=== PATIENT | male | born 1965 | race Caucasian/White ===

== ENCOUNTER 2016-10-10 07:54 | Emergency (ER) | payer MEDICAID ==
[~2016-10-10] VITALS: Ht 177.8 cm; Wt 137.0 kg
[~2016-10-10 07:54] MED LIST: ADVAI250I PO; COMBAER INH; HYDR-3533 PO; IBUP800 PO; SERO400T PO; VENTAER INH
[2016-10-10 07:58] VITALS: BP 131/101; PULSE 101; RESP 30; TEMP 98.5; O2SAT 97
[2016-10-10] MEDS ORDERED: SODIUM CHLORIDE 0.9% FLUSH 5 ML FLUSH IVF PRN (08:00)
[2016-10-10] MEDS ORDERED: methylPREDNISolone SOD SUCC 125 MG/2 ML VIAL IVP ONE (08:00)
[2016-10-10 08:04] VITALS: O2SAT 99
[2016-10-10] MEDS: RESP: ALBUTEROL 2.5 MG/IPRATROPIUM 0.5 MG NEB (SCH) INH (08:07)
[2016-10-10 08:10] VITALS: O2SAT 6
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
[2016-10-10 08:37] LABS: AUTOMATED NEUTROPHIL # 6.8 TH/MM3 (1.8-7.7); BASOPHIL # 0.1 TH/MM3 (0-0.2); BASOPHIL % 0.6 % (0.0-2.0); EOSINOPHIL % 0.3 % (0.0-4.0); HEMATOCRIT 46.8 % (39.0-51.0); HEMO FLAGS DIFF FINAL; LYMPH % 14.2 % (9.0-44.0); LYMPHOCYTE # 1.3 TH/MM3 (1.0-4.8); MEAN CELL VOLUME 100.3 FL (80.0-100.0); MEAN CORPUSCULAR HEMOGLOBIN 33.8 PG (27.0-34.0); MEAN CORPUSCULAR HGB CONC 33.7 % (32.0-36.0); MONO % 9.3 % (0.0-8.0); NEUT % 75.6 % (16.0-70.0); PLATELET COUNT 249 TH/MM3 (150-450); RED BLOOD COUNT 4.66 MIL/MM3 (4.50-5.90); RED CELL DISTRIBUTION WIDTH 11.4 % (11.6-17.2)
[2016-10-10 08:43] VITALS: BP 163/95; PULSE 99; RESP 26; O2SAT 95
[2016-10-10 08:45] LABS: CHLORIDE 104 MEQ/L (98-107); SODIUM (NA) 141 MEQ/L (136-145)
[2016-10-10 08:49] LABS: ANION GAP 7 MEQ/L (5-15); BICARBONATE 30.5 MEQ/L (21.0-32.0); BLOOD UREA NITROGEN 17 MG/DL (7-18)
[2016-10-10 08:52] LABS: ALT (GPT) 54 U/L (12-78); AST (GOT) 23 U/L (15-37)
[2016-10-10 08:53] LABS: GLOMERULAR FILTRATION RATE 78 ML/MIN (>89)
[2016-10-10 08:54] LABS: TOTAL BILIRUBIN ADULT 0.3 MG/DL (0.2-1.0)
[2016-10-10 08:55] LABS: ALKALINE PHOSPHATASE 101 U/L (45-117)
[2016-10-10] MEDS ORDERED: LORazepam 0.5 MG TAB PO ONE (09:00)
--- NOTE | 2016-10-10 09:08 | RADHPO ---
EXAM DATE/TIME: 10/10/2016 08:25 [facility] COMPARISON: CHEST SINGLE AP, May 18, 2015, 3:16. INDICATIONS : Short of breath, cough, chest pain. MEDICAL HISTORY : Chronic obstructive pulmonary disease. SURGICAL HISTORY : None. ENCOUNTER: Initial ACUITY: 1 week PAIN SCORE: 5/10 LOCATION: Bilateral chest FINDINGS: A single view of the chest demonstrates the lungs to be symmetrically aerated without evidence of mas s, infiltrate or effusion. Subsegmental atelectasis at the bases. The cardiomediastinal contours are unremarkable. Osseous structures are intact. CONCLUSION: 1. Subsegmental atelectasis at the bases. No acute findings. Felix Vaz MD on October 10, 2016 at 9:02 Board Certified Radiologist. This report was verified electronically.
[2016-10-10] MEDS ORDERED: PRED20 PO (09:21)
--- NOTE | 2016-10-10 16:56 | EKG ---
Date Performed: 10/10/2016 Time Performed: 08:45:26 PTAGE: 50 years EKG: Sinus rhythm Normal ECG PREVIOUS TRACING : 05/18/2015 02.59 Compared to previous tracing, the patient is no longer tach ycardic. DOCTOR: Kala Wong Interpretating Date/Time 10/10/2016 16:55:35
== END 2016-10-10 09:26 | disposition home or self-care (01) ==
LOC: PHED 07:54
DX: J44.1 Chronic obstructive pulmonary disease with (acute) exacerbation (principal); J45.909 Unspecified asthma, uncomplicated; B19.20 Unspecified viral hepatitis C without hepatic coma; I10 Essential (primary) hypertension; F17.210 Nicotine dependence, cigarettes, uncomplicated; R00.0 Tachycardia, unspecified; B95.7 Other staphylococcus as the cause of diseases classified elsewhere
CPT/HCPCS: 71010; 80053; 83605; 83880; 84484; 85025; 87040; 87077; 87186; 87205; 87804; 93005; 94640; 94664; 96374; 99285; J2930

== ENCOUNTER 2016-12-31 07:17 | Emergency (ER) | payer MEDICAID ==
[~2016-12-31] VITALS: Ht 177.8 cm; Wt 133.0 kg
[~2016-12-31 07:17] MED LIST changes: +PRED20 PO
[2016-12-31 07:20] VITALS: BP 189/94; PULSE 83; RESP 16; TEMP 98.7; O2SAT 98
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
[2016-12-31] MEDS ORDERED: PROPARACAINE HCL 0.5% OPHT SOLN 15 ML BTL EACH EYE ONE (07:45)
[2016-12-31] MEDS ORDERED: TOBR.3%O LEFT EYE (07:49)
== END 2016-12-31 07:55 | disposition home or self-care (01) ==
LOC: PHED 07:17
DX: S05.02XA Injury of conjunctiva and corneal abrasion without foreign body, left eye, initial encounter (principal); J44.9 Chronic obstructive pulmonary disease, unspecified; J45.909 Unspecified asthma, uncomplicated; F41.9 Anxiety disorder, unspecified; B19.20 Unspecified viral hepatitis C without hepatic coma; I10 Essential (primary) hypertension; F17.200 Nicotine dependence, unspecified, uncomplicated; W22.8XXA Striking against or struck by other objects, initial encounter; Z79.899 Other long term (current) drug therapy
CPT/HCPCS: 99283

== ENCOUNTER 2017-02-07 05:41 | Emergency (ER) | payer MEDICAID, OTHER ==
[~2017-02-07] VITALS: Ht 177.8 cm; Wt 113.0 kg
[~2017-02-07 05:41] MED LIST changes: +TOBR.3%O LEFT EYE
[2017-02-07] MEDS ORDERED: HYDROmorphone HCL PF 1 MG/ML VIAL IV PUSH ONE ×2 (05:45→06:45)
[2017-02-07 05:48] VITALS: BP 136/99; PULSE 108; RESP 24; TEMP 98.7; O2SAT 96
[2017-02-07] MEDS ORDERED: SERO400T PO (05:55)
[2017-02-07] MEDS ORDERED: VENTAER INH (05:55)
[2017-02-07] MEDS ORDERED: ADVA500A INH (05:55)
[2017-02-07] MEDS ORDERED: IPRA17I INH (05:55)
[2017-02-07] MEDS ORDERED: IBUP800T23 PO (05:55)
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
[2017-02-07] MEDS ORDERED: IOHEXOL 350 MG/ML 10 ML VIAL (for RAD DIAG) IV ONE (06:06)
[2017-02-07 06:26] LABS: ALKALINE PHOSPHATASE 61 U/L (45-117); TOTAL BILIRUBIN ADULT 0.7 MG/DL (0.2-1.0)
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
[2017-02-07] MEDS ORDERED: RESP: ALBUTEROL 2.5 MG/IPRATROPIUM 0.5 MG NEB (SCH) NEB ONE (06:45)
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
[2017-02-07 07:07] LABS: ALT (GPT) 44 U/L (12-78); ANION GAP 9 MEQ/L (5-15); AST (GOT) 35 U/L (15-37); BICARBONATE 21.6 MEQ/L (21.0-32.0); BLOOD UREA NITROGEN 20 MG/DL (7-18); CHLORIDE 104 MEQ/L (98-107); GLOMERULAR FILTRATION RATE 69 ML/MIN (>89); POTASSIUM 4.1 MEQ/L (3.5-5.1); SODIUM (NA) 135 MEQ/L (136-145)
[2017-02-07 07:11] LABS: AUTOMATED NEUTROPHIL # 9.6 TH/MM3 (1.8-7.7); BASOPHIL % 0.3 % (0.0-2.0); EOSINOPHIL % 0.1 % (0.0-4.0); HEMATOCRIT 41.7 % (39.0-51.0); HEMO FLAGS DIFF FINAL; LYMPH % 13.5 % (9.0-44.0); LYMPHOCYTE # 1.7 TH/MM3 (1.0-4.8); MEAN CELL VOLUME 97.1 FL (80.0-100.0); MEAN CORPUSCULAR HEMOGLOBIN 33.7 PG (27.0-34.0); MEAN CORPUSCULAR HGB CONC 34.7 % (32.0-36.0); MONO % 7.7 % (0.0-8.0); NEUT % 78.4 % (16.0-70.0); PLATELET COUNT 165 TH/MM3 (150-450); RED BLOOD COUNT 4.29 MIL/MM3 (4.50-5.90); RED CELL DISTRIBUTION WIDTH 11.9 % (11.6-17.2); WHITE BLOOD COUNT 12.3 TH/MM3 (4.0-11.0)
[2017-02-07 07:12] LABS: APTT (PATIENT) 23.8 SEC (24.3-30.1); PROTHROMBIN TIME - PATIENT 10.7 SEC (9.8-11.6)
[2017-02-07 07:15] VITALS: BP 139/91; PULSE 102; RESP 18; TEMP 97.8; O2SAT 96
[2017-02-07] MEDS ORDERED: LIDOCAINE 1%/EPINEPHrine 1:100,000 SOLN 50 ML VIAL INFIL ONE (08:30)
--- NOTE | 2017-02-07 09:01 | PD ---
Physical Exam Time Seen by Provider: 08:58 Narrative I repaired the lacerations to the left posterior scalp. Data Data Last Documented VS Vital Signs Date Time Temp Pulse Resp B/P Pulse Ox O2 Delivery O2 Flow Rate FiO2 02/07/17 07:15 97.8 102 18 139/91 96 Room Air 02/07/17 07:15 2 Orders Complete Blood Count With Diff (02/07/17 05:45) Comprehensive Metabolic Panel (02/07/17 05:45) Prothrombin Time / Inr (Pt) (02/07/17 05:45) Act Partial Throm Time (Ptt) (02/07/17 05:45) Ct Brain W/O Iv Contrast(Rout) (02/07/17 ) Ct Cerv Spine W/O Contrast (02/07/17 ) Ct Thorax/ Chest W Iv Contrast (02/07/17 ) Ct Abd/Pel W Iv Contrast(Rout) (02/07/17 ) ^ Insert Iv (02/07/17 05:45) Hydromorphone Pf Inj (Dilaudid Pf Inj) (02/07/17 05:45) Iohexol 350 Inj (Omnipaque 350 Inj) (02/07/17 06:06) Albuterol-Ipratropium Neb (Duoneb Neb) (02/07/17 06:45) Hydromorphone Pf Inj (Dilaudid Pf Inj) (02/07/17 06:45) Lidocai-Epi 1%-1:100,000 Inj (Xylocaine- (02/07/17 08:30) Electrocardiogram (02/07/17 05:49) Labs Laboratory Tests Test 02/07/17 02/07/17 02/07/17 05:58 06:47 07:00 Sodium Level 135 MEQ/L Potassium Level 4.1 MEQ/L Chloride Level 104 MEQ/L Carbon Dioxide Level 21.6 MEQ/L Anion Gap 9 MEQ/L Blood Urea Nitrogen 20 MG/DL Creatinine 1.12 MG/DL Estimat Glomerular Filtration 69 ML/MIN Rate Random Glucose 179 MG/DL Calcium Level 8.8 MG/DL Total Bilirubin 0.7 MG/DL Aspartate Amino Transf 35 U/L (AST/SGOT) Alanine Aminotransferase 44 U/L (ALT/SGPT) Alkaline Phosphatase 61 U/L Total Protein 6.7 GM/DL Albumin 3.2 GM/DL Prothrombin Time 10.7 SEC Prothromb Time International 1.0 RATIO Ratio Activated Partial 23.8 SEC Thromboplast Time White Blood Count 12.3 TH/MM3 Red Blood Count 4.29 MIL/MM3 Hemoglobin 14.5 GM/DL Hematocrit 41.7 % Mean Corpuscular Volume 97.1 FL Mean Corpuscular Hemoglobin 33.7 PG Mean Corpuscular Hemoglobin 34.7 % Concent Red Cell Distribution Width 11.9 % Platelet Count 165 TH/MM3 Mean Platelet Volume 8.5 FL Neutrophils (%) (Auto) 78.4 % Lymphocytes (%) (Auto) 13.5 % Monocytes (%) (Auto) 7.7 % Eosinophils (%) (Auto) 0.1 % Basophils (%) (Auto) 0.3 % Neutrophils # (Auto) 9.6 TH/MM3 Lymphocytes # (Auto) 1.7 TH/MM3 Monocytes # (Auto) 0.9 TH/MM3 Eosinophils # (Auto) 0.0 TH/MM3 Basophils # (Auto) 0.0 TH/MM3 CBC Comment DIFF FINAL Differential Comment MDM Medical Record Reviewed: Yes Supervised Visit with GLADYS: No Narrative Course I repaired the lacerations to the left posterior scalp. See my procedure note for laceration repair. Procedures Procedure Narrative LACERATION LOCATION: Left posterior scalp (right) LENGTH: 2.5 cm NUMBER OF STITCHES/RONNI: 4 ronni REPAIR: The area of the laceration was prepped with Betadine and sterilely draped. The laceration was infiltrated with 1% lidocaine with epinephrine. The wound was copiously irrigated and explored without evidence of foreign body, tendon injury or neurovascular injury. The wound was closed using ronni. This was a single layer repair. A sterile dressing was applied. The patient was advised to keep the dressing clean and dry. Patient tolerated the procedure well. LACERATION LOCATION: Left posterior scalp (middle) LENGTH: 1 cm NUMBER OF STITCHES/RONNI: 2 ronni REPAIR: The area of the laceration was prepped with Betadine and sterilely draped. The laceration was infiltrated with 1% lidocaine with epinephrine. The wound was copiously irrigated and explored without evidence of foreign body, tendon injury or neurovascular injury. The wound was closed using ronni. This was a single layer repair. A sterile dressing was applied. The patient was advised to keep the dressing clean and dry. Patient tolerated the procedure well. LACERATION LOCATION: Left posterior scalp (left) LENGTH: 3 cm NUMBER OF STITCHES/RONNI: 5 ronni REPAIR: The area of the laceration was prepped with Betadine and sterilely draped. The laceration was infiltrated with 1% lidocaine with epinephrine. The wound was copiously irrigated and explored without evidence of foreign body, tendon injury or neurovascular injury. The wound was closed using ronni. This was a single layer repair. A sterile dressing was applied. The patient was advised to keep the dressing clean and dry. Patient tolerated the procedure well. Aaliyah Pena February 07, 2017 09:01
--- NOTE | 2017-02-07 09:47 | EKG ---
Date Performed: 02/07/2017 Time Performed: 05:49:51 PTAGE: 51 years EKG: SINUS TACHYCARDIA ABNORMAL RHYTHM ECG PREVIOUS TRACING : 10/10/2016 08.45 DOCTOR: Jayson Allen Interpretating Date/Time 02/09/2017 09:08:35
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
[2017-02-07] MEDS ORDERED: PERC10TA27 PO (09:55)
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
[2017-02-07 11:00] VITALS: BP 126/81; TEMP 98
[2017-02-08] MEDS ORDERED: SENN1TAB PO (14:42)
--- NOTE | 2017-02-11 13:08 | EKG ---
Date Performed: 02/07/2017 Time Performed: 08:50:29 PTAGE: 51 years EKG: Sinus rhythm NORMAL ECG PREVIOUS TRACING : 02/07/2017 05.49 DOCTOR: Jayson Allen Interpretating Date/Time 02/11/2017 13:07:44
== END 2017-02-07 11:00 | disposition home or self-care (01) ==
LOC: NEPE 05:41
DX: S01.01XA Laceration without foreign body of scalp, initial encounter (principal); S20.219A Contusion of unspecified front wall of thorax, initial encounter; S00.93XA Contusion of unspecified part of head, initial encounter; S30.0XXA Contusion of lower back and pelvis, initial encounter; S70.02XA Contusion of left hip, initial encounter; R00.0 Tachycardia, unspecified; J45.909 Unspecified asthma, uncomplicated; J44.9 Chronic obstructive pulmonary disease, unspecified; I10 Essential (primary) hypertension; B19.20 Unspecified viral hepatitis C without hepatic coma; F17.210 Nicotine dependence, cigarettes, uncomplicated; V29.88XA Motorcycle rider (driver) (passenger) injured in other specified transport accidents, initial encounter; Y93.E6 Activity, residential relocation; Y92.410 Unspecified street and highway as the place of occurrence of the external cause; Y99.8 Other external cause status
CPT/HCPCS: 12002; 70450; 71260; 72125; 74177; 80053; 85025; 85610; 85730; 93005; 94664; 96374; 96376; 99285; J1170; Q9967

== ENCOUNTER 2017-02-08 12:04 | Observation (INO) | payer MEDICAID, OTHER ==
[~2017-02-08] VITALS: Ht 177.8 cm; Wt 126.8 kg
[~2017-02-08 12:04] MED LIST changes: +ADVA500A INH; -ADVAI250I PO; -COMBAER INH; -HYDR-3533 PO; -IBUP800 PO; +IBUP800T23 PO; +IPRA17I INH; +PERC10TA27 PO; -PRED20 PO; -TOBR.3%O LEFT EYE
[2017-02-08 12:07] VITALS: BP 111/76; PULSE 113; RESP 22; TEMP 98.3; O2SAT 96
[2017-02-08 12:22] VITALS: BP 115/68; PULSE 99; RESP 22; TEMP 98.3; O2SAT 97
[2017-02-08] MEDS ORDERED: HYDROmorphone HCL PF 1 MG/ML VIAL IV PUSH ONE (12:45)
[2017-02-08] MEDS ORDERED: ONDANSETRON HCL 4 MG/2 ML VIAL IV PUSH ONE (12:45)
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
[2017-02-08 13:13] LABS: AUTOMATED NEUTROPHIL # 5.4 TH/MM3 (1.8-7.7); BASOPHIL # 0.3 TH/MM3 (0-0.2); EOSINOPHIL # 0.2 TH/MM3 (0-0.4); EOSINOPHIL % 2.2 % (0.0-4.0); HEMATOCRIT 36.2 % (39.0-51.0); HEMO FLAGS DIFF FINAL; LYMPHOCYTE # 2.2 TH/MM3 (1.0-4.8); MEAN CELL VOLUME 98.4 FL (80.0-100.0); MEAN CORPUSCULAR HGB CONC 33.5 % (32.0-36.0); MONO % 8.4 % (0.0-8.0); NEUT % 61.4 % (16.0-70.0); PLATELET COUNT 146 TH/MM3 (150-450); RED BLOOD COUNT 3.68 MIL/MM3 (4.50-5.90); RED CELL DISTRIBUTION WIDTH 11.3 % (11.6-17.2); WHITE BLOOD COUNT 8.9 TH/MM3 (4.0-11.0)
[2017-02-08 13:27] LABS: POTASSIUM 3.5 MEQ/L (3.5-5.1)
[2017-02-08 13:30] LABS: BICARBONATE 30.2 MEQ/L (21.0-32.0)
--- NOTE | 2017-02-08 13:40 | RADHPO ---
EXAM DATE/TIME: 02/08/2017 12:58 [facility] COMPARISON: CHEST SINGLE AP, October 10, 2016, 8:25. INDICATIONS : Short of breath, chest pains MEDICAL HISTORY : Chronic obstructive pulmonary disease. Emphysema. SURGICAL HISTORY : None. ENCOUNTER: Initial ACUITY: 2 days PAIN SCORE: 10/10 LOCATION: Bilateral chest FINDINGS: A single view of the chest demonstrates the lungs to be symmetrically aerated without evidence of mas s, infiltrate or effusion. The cardiomediastinal contours are unremarkable. Osseous structures are intact. CONCLUSION: No acute disease. Pepe Burr MD on February 08, 2017 at 13:38 Board Certified Radiologist. This report was verified electronically.
[2017-02-08 14:05] VITALS: BP 138/63; PULSE 98; RESP 18; O2SAT 96
[2017-02-08 14:30] LABS: APTT (PATIENT) 24.3 SEC (24.3-30.1); PROTHROMBIN TIME - PATIENT 10.5 SEC (9.8-11.6)
[2017-02-08] MEDS ORDERED: BISACODYL 10 MG SUPP RECTAL PRN (14:30)
[2017-02-08] MEDS ORDERED: oxyCODONE/ACETAMINOPHEN 10 MG/325 MG TAB PO PRN (14:30)
[2017-02-08] MEDS ORDERED: HYDROmorphone HCL PF 1 MG/ML VIAL IV PRN (14:30)
[2017-02-08] MEDS ORDERED: ACETAMINOPHEN 325 MG TAB PO PRN (14:30)
[2017-02-08] MEDS ORDERED: ALBUTEROL SULFATE 90 MCG/ACT HFA 8 GM INHALER INH PRN (14:30)
[2017-02-08] MEDS ORDERED: SODIUM CHLORIDE 0.9% FLUSH 10 ML FLUSH IV FLUSH PRN (14:30)
[2017-02-08] MEDS ORDERED: oxyCODONE/ACETAMINOPHEN 5 MG/325 MG TAB PO PRN (14:30)
[2017-02-08] MEDS ORDERED: ONDANSETRON HCL 4 MG/2 ML VIAL IVP PRN (14:30)
[2017-02-08] MEDS ORDERED: IPRATROPIUM BROMIDE 17 MCG/ACT 12.9 GM INHALER INH PRN (14:30)
[2017-02-08] MEDS ORDERED: NALOXONE HCL 0.4 MG/ML AMP IV PRN (14:30)
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
[2017-02-08] MEDS ORDERED: SENN1TAB PO (14:42)
--- NOTE | 2017-02-08 14:43 | HHI.DCPOC ---
Discharge Care Plan Diagnosis: (1) Contusion of buttock (2) Chest wall contusion Your Health Problems Are: Difficulty with ADL Exercise Tolerance Chronic Pain Goals to Promote Your Health * To prevent worsening of your condition and complications * To maintain your health at the optimal level Directions to Meet Your Goals Take your medications as prescribed Follow your dietary instruction Follow activity as directed Keep your appointments as scheduled Take your immunizations and boosters as scheduled If your symptoms worsen call your PCP, if no PCP go to Urgent Care Center or Emergency Room Smoking is Dangerous to Your Health. Avoid second hand smoke Call the 24-hour hour crisis hotline for domestic abuse at Chon Orellana MD February 08, 2017 14:43
--- NOTE | 2017-02-08 14:44 | HHI.FF ---
Face to Face Verification Diagnosis: (1) Contusion of buttock Physical Therapy Order: Evaluate and Treat, Improve ambulation, Strength and gait training I have seen patient Sergey Ch on 02/08/17. My clinical findings support the need for the requested home health care services because: Patient has SOB Deconditioned w/ increased weakness I certify that my clinical findings support that this patient is homebound because: Unsteady gait/balance Unsafe to leave home unassisted Chon Orellana MD February 08, 2017 14:43
[2017-02-08] MEDS ORDERED: NEOMYCIN/POLYMYXIN/BACITRACIN OINT 15 GM TUBE TOPICAL SCH (15:00)
[2017-02-08] MEDS ORDERED: DOCUSATE SODIUM 50 MG/SENNA 8.6 MG TAB PO SCH (15:00)
[2017-02-08 15:30] VITALS: BP 111/82; PULSE 106; RESP 20; TEMP 97.2; O2SAT 90
[2017-02-08] MEDS ORDERED: RESP: IPRATROPIUM 0.5 MG/2.5 ML NEB NEB PRN (15:30)
[2017-02-08 15:41] VITALS: O2SAT 93
[2017-02-08] MEDS ORDERED: BUDESONIDE-FORMOTEROL 160/4.5 MCG INHALER INH SCH (21:00)
[2017-02-08] MEDS ORDERED: SODIUM CHLORIDE 0.9% FLUSH 10 ML FLUSH IV FLUSH SCH (21:00)
[2017-02-08] MEDS ORDERED: QUEtiapine FUMARATE 200 MG TAB PO SCH (21:00)
== END 2017-02-08 18:52 | disposition home or self-care (01) ==
LOC: PHED 12:04 → PHEDA 14:16 → PH3A 15:03
PROVIDERS: ADMIT Internal Medicine; ATTEND Internal Medicine
DX: S20.212D Contusion of left front wall of thorax, subsequent encounter (principal); S30.0XXD Contusion of lower back and pelvis, subsequent encounter; S01.01XA Laceration without foreign body of scalp, initial encounter; J44.9 Chronic obstructive pulmonary disease, unspecified; I10 Essential (primary) hypertension; D64.9 Anemia, unspecified; R73.9 Hyperglycemia, unspecified; V00.148D Other scooter (nonmotorized) accident, subsequent encounter; M54.9 Dorsalgia, unspecified; G89.29 Other chronic pain; B19.20 Unspecified viral hepatitis C without hepatic coma; F17.200 Nicotine dependence, unspecified, uncomplicated; F41.9 Anxiety disorder, unspecified; E66.9 Obesity, unspecified; Z68.41 Body mass index [BMI] 40.0-44.9, adult
CPT/HCPCS: 71010; 80048; 85025; 85610; 85730; 94150; 96374; 96375; 99285; G0378; J1170; J2405

== ENCOUNTER 2017-02-11 12:13 | Emergency (ER) | payer MEDICAID, OTHER ==
[~2017-02-11] VITALS: Ht 177.8 cm; Wt 128.0 kg
[~2017-02-11 12:13] MED LIST changes: +SENN1TAB PO
[2017-02-11 12:16] VITALS: BP 177/98; PULSE 95; RESP 24; TEMP 98.6; O2SAT 95
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
[2017-02-11] MEDS ORDERED: oxyCODONE/ACETAMINOPHEN 10 MG/325 MG TAB PO ONE (14:00)
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
[2017-02-11] MEDS ORDERED: PERC5TAB12 PO (15:13)
[2017-02-11 15:20] VITALS: BP 131/72
== END 2017-02-11 15:25 | disposition home or self-care (01) ==
LOC: NEPE 12:13
DX: S30.0XXA Contusion of lower back and pelvis, initial encounter (principal); X58.XXXA Exposure to other specified factors, initial encounter
CPT/HCPCS: 99283

== ENCOUNTER 2017-02-16 11:02 | Emergency (ER) | payer MEDICAID ==
[~2017-02-16] VITALS: Ht 177.8 cm; Wt 130.0 kg
[~2017-02-16 11:02] MED LIST changes: -PERC10TA27 PO; +PERC5TAB12 PO
[2017-02-16 11:05] VITALS: BP 144/96; PULSE 87; RESP 20; TEMP 97.3; O2SAT 97
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
== END 2017-02-16 11:44 | disposition home or self-care (01) ==
LOC: PHEFT 11:02
DX: Z48.02 Encounter for removal of sutures (principal); J45.909 Unspecified asthma, uncomplicated; F41.9 Anxiety disorder, unspecified; J44.9 Chronic obstructive pulmonary disease, unspecified; I10 Essential (primary) hypertension; B19.20 Unspecified viral hepatitis C without hepatic coma; F17.200 Nicotine dependence, unspecified, uncomplicated; Z79.899 Other long term (current) drug therapy; Z79.51 Long term (current) use of inhaled steroids
CPT/HCPCS: 99281

== ENCOUNTER 2017-06-23 19:32 | Emergency (ER) | payer MEDICAID ==
[~2017-06-23] VITALS: Ht 177.8 cm; Wt 117.0 kg
--- NOTE | 2017-06-23 19:43 | PD ---
HPI Chief Complaint: Respiratory Distress Time Seen by Provider: 19:35 Travel History International Travel<30 days: No Contact w/Intl Traveler<30days: No Traveled to known affect area: No History of Present Illness HPI 51-year-old male presents to the emergency department with marked shortness of breath and respiratory distress with history of COPD exacerbation times one day. Patient states he has his rescue inhaler and nebulizer at home but there are not providing any symptomatic relief. Patient denies any recent antibiotic use. Patient denies any recent fever. Patient denies chest pain. Ongoing tobacco use. PFSH Past Medical History Narrative Medical COPD anxiety hepatitis C tobacco use remote cocaine use nursing notes reviewed Asthma: Yes Anxiety: Yes Cardiovascular Problems: Yes COPD: Yes Diabetes: No Diminished Hearing: No Gastrointestinal Disorders: No Hepatitis: Yes (HEP C) Hypertension: Yes Musculoskeletal: Yes (CHRONIC BACK PAIN SINCE 1994 R/T FALL) Neurologic: No Respiratory: Yes (copd) Immunizations Current: Yes (hep a vacc 2010 &b vacc.2010) Sleep Apnea: No Past Surgical History Abdominal Surgery: Yes (HERNIA REPAIR x4) Body Medical Devices: COCAINE USE LAST 20 YRS AGO Cholecystectomy: Yes Neurologic Surgery: No Other Surgery: Yes (LIVER BIOPSY X2) Social History Alcohol Use: No Tobacco Use: Yes (1/2PPD) Substance Use: No (denies-IV drug use in the 80s) Allergies-Medications (Allergen,Severity, Reaction): Coded Allergies: No Known Allergies (Verified , 02/16/17) Reported Meds & Prescriptions Reported Meds & Active Scripts Active Medrol Dosepak (Methylprednisolone) 4 Mg Dspk 4 Mg PO DIRECTED Per Pharmacist direction Atrovent HFA 12.9 GM Inh (Ipratropium [place]) 17 Mcg/Actuation Aer 2 Puff INH Q6HR PRN Reported Seroquel (Quetiapine Fumarate) 400 Mg Tab 400 Mg PO HS Ibuprofen 800 Mg Tab 800 Mg PO BID PRN Atrovent HFA 12.9 GM Inh (Ipratropium [place]) 17 Mcg/Act Aer 2 Puff INH Q6HR PRN Ventolin Hfa 18 GM Inh (Albuterol Sulfate) 90 Mcg/Act Aer 2 Puff INH Q4H PRN Advair Diskus Inh (Fluticasone-Salmeterol Inh) 500-50 Mcg/Blist Aer 1 Puff INH BID Rinse mouth after use. Review of Systems Except as stated in HPI: all other systems reviewed are Neg General / Constitutional: No: Fever HENT: No: Congestion Cardiovascular: No: Chest Pain or Discomfort Respiratory: Positive: Cough, Shortness of Breath, Wheezing Gastrointestinal: No: Abdominal Pain Musculoskeletal: No: Pain Skin: No Rash Neurologic: No: Weakness Psychiatric: Positive: Anxiety Hematologic/Lymphatic: No: Lymph Node Enlargement Physical Exam Narrative GENERAL: Well-developed well-nourished male in no respiratory distress no stridor or hoarseness SKIN: Warm and diaphoretic. HEAD: Normocephalic. EYES: No scleral icterus. No injection or drainage. NECK: Supple, trachea midline. No JVD or lymphadenopathy. CARDIOVASCULAR: Increase Regular rate and rhythm without murmurs, gallops, or rubs. RESPIRATORY: Breath sounds equal bilaterally diminished with diffuse wheezing. No accessory muscle use. GASTROINTESTINAL: Abdomen soft, non-tender, nondistended. MUSCULOSKELETAL: No cyanosis, or edema. BACK: Nontender without obvious deformity. No CVA tenderness. Data Data Last Documented VS Vital Signs Date Time Temp Pulse Resp B/P (MAP) Pulse Ox O2 Delivery O2 Flow Rate FiO2 06/23/17 21:00 06/23/17 20:48 18 97 Room Air 06/23/17 20:36 87 2.00 Orders Orders Complete Blood Count With Diff (06/23/17 19:35) Basic Metabolic Panel (Bmp) (06/23/17 19:35) B-Type Natriuretic Peptide (06/23/17 19:35) Magnesium (Mg) (06/23/17 19:35) Ckmb (Isoenzyme) Profile (06/23/17 19:35) Troponin I (06/23/17 19:35) Iv Access Insert/Monitor (06/23/17 19:35) Electrocardiogram (06/23/17 19:35) Ecg Monitoring (06/23/17 19:35) Oximetry (06/23/17 19:35) Oxygen Administration (06/23/17 19:35) Chest, Single Ap (06/23/17 19:35) Sodium Chloride 0.9% Flush (Ns Flush) (06/23/17 19:45) Methylprednisolone So Succ Inj (Solumedr (06/23/17 19:45) Albuterol-Ipratropium Neb (Duoneb Neb) (06/23/17 19:45) Lorazepam Inj (Ativan Inj) (06/23/17 20:00) CKMB (06/23/17 19:40) CKMB% (06/23/17 19:40) Albuterol-Ipratropium Neb (Duoneb Neb) (06/23/17 21:00) Labs Laboratory Tests Test 06/23/17 19:40 06/23/17 20:18 Blood Urea Nitrogen 10 MG/DL Creatinine 0.90 MG/DL Random Glucose 84 MG/DL Calcium Level 9.1 MG/DL Magnesium Level 2.2 MG/DL Sodium Level 138 MEQ/L Potassium Level 4.0 MEQ/L Chloride Level 102 MEQ/L Carbon Dioxide Level 27.9 MEQ/L Anion Gap 8 MEQ/L Estimat Glomerular Filtration Rate 88 ML/MIN Total Creatine Kinase 242 U/L Creatine Kinase MB 3.3 NG/ML Troponin I LESS THAN 0.02 NG/ML B-Type Natriuretic Peptide 29 PG/ML White Blood Count 8.4 TH/MM3 Red Blood Count 4.97 MIL/MM3 Hemoglobin 15.9 GM/DL Hematocrit 48.2 % Mean Corpuscular Volume 96.8 FL Mean Corpuscular Hemoglobin 32.1 PG Mean Corpuscular Hemoglobin Concent 33.1 % Red Cell Distribution Width 12.8 % Platelet Count 189 TH/MM3 Mean Platelet Volume 7.7 FL Neutrophils (%) (Auto) 51.0 % Lymphocytes (%) (Auto) 38.5 % Monocytes (%) (Auto) 8.2 % Eosinophils (%) (Auto) 1.7 % Basophils (%) (Auto) 0.6 % Neutrophils # (Auto) 4.3 TH/MM3 Lymphocytes # (Auto) 3.2 TH/MM3 Monocytes # (Auto) 0.7 TH/MM3 Eosinophils # (Auto) 0.1 TH/MM3 Basophils # (Auto) 0.1 TH/MM3 CBC Comment DIFF FINAL Differential Comment MDM Medical Decision Making Medical Screen Exam Complete: Yes Emergency Medical Condition: Yes Medical Record Reviewed: Yes Interpretation(s) EKG sinus rhythm rate [address] elevation or injury pattern or ectopy noted normal axis and intervals troponin I: less than 0.02, not elevated; BNP: 28, not elevated CXR: bibasilar prominence/question mild vascular congestion CBC & BMP Diagram 06/23/17 19:40 Calcium Level 9.1, Magnesium Level 2.2 06/23/17 20:18 CK: 242, not elevated; MB% 1.4% not elevated Differential Diagnosis Exacerbation COPD CHF PE ACS Narrative Course Patient placed on telemetry monitor IV access obtained specimens collected and sent for resulting Solu-Medrol 125 mg IV administered along with 3 DuoNeb updrafts At 1953 PM after receiving DuoNeb updraft and while receiving additional bronchodilator therapy patient reports that he lives in [facility] but 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 Patient also reports he has not been using any substances and his "tox screen will be clean". Patient does appear and remains very anxious therefore administered a one-time dose of Ativan 1 mg IV to be administered as ativan 0.5 mg iv aliquots. At 20:16 patient reports markedly better and wants something to eat and a chance to sleep for awhile in the ED; states that he cannot be admitted and does not want to sign out ama. @ 20:40 PM patient reassessed--lungs clear to auscultation although still diminished RA O2 sat: 97% with obvious improvement ---discussed observation admission and patient refuses; agrees to additional duoneb treatment -- ordered discussed will revisit observation admission vs outpatient treatment after updraft; patient adamant will not stay for admission -- reports out of atrovent but has albuterol and has an appointment with Dr Pérez. Concern for elopement without needed inhaler refill and additional steroid therapy -- therefore will write RX for atrovent refill and medrol dose pack as these will be provided if patient improves and/or again declines OBS. @ 2100 --while receiving additional updraft --per RT dumped medication on the bed asked RT to not notify the MD and left without completing the treatment or being reassessed. Diagnosis Primary Impression: COPD exacerbation Additional Impressions: Medication refill Pneumonitis Referrals: Primary Care Physician call for appointment Patient Instructions: General Instructions Additional Instructions: Take your prescription as medications as directed Increase fluid hydration Avoid overheating keep appointment with your product distribution specialist Dr Pérez as scheduled and call for appointment with your PCP: Dr Tony return to the ED for any concerns or recurrent symptoms complete course of steroids Med/Other Pt SpecificInfo: Prescription(s) given Scripts Methylprednisolone Dosepak (Medrol Dosepak) 4 Mg Dspk 4 MG PO DIRECTED, #1 DSPK 0 Refills Per Pharmacist direction Prov: Cherry Astorga MD 06/23/17 Ipratropium HFA 12.9 GM Inh (Atrovent HFA 12.9 GM Inh) 17 Mcg/Actuation Aer 2 PUFF INH Q6HR Y for SHORTNESS OF BREATH, #1 INHALER 0 Refills Prov: Cherry Astorga MD 06/23/17 Disposition: 01 DISCHARGE HOME Condition: Stable Cherry Astorga MD Jun 23, 2017 19:43
[2017-06-23] MEDS ORDERED: methylPREDNISolone SOD SUCC 125 MG/2 ML VIAL IV PUSH ONE (19:45)
[2017-06-23] MEDS ORDERED: SODIUM CHLORIDE 0.9% FLUSH 10 ML FLUSH IVF PRN (19:45)
[2017-06-23] MEDS: RESP: ALBUTEROL 2.5 MG/IPRATROPIUM 0.5 MG NEB (SCH) INH ×3 (19:45→19:58)
[2017-06-23 19:46] VITALS: RESP 24; O2SAT 95
[2017-06-23] MEDS ORDERED: LORazepam 2 MG/ML VIAL IV PUSH ONE (20:00)
[2017-06-23 20:14] LABS: CHLORIDE 102 MEQ/L (98-107); SODIUM (NA) 138 MEQ/L (136-145)
[2017-06-23 20:17] LABS: ANION GAP 8 MEQ/L (5-15); BICARBONATE 27.9 MEQ/L (21.0-32.0); BLOOD UREA NITROGEN 10 MG/DL (7-18); MAGNESIUM 2.2 MG/DL (1.5-2.5)
[2017-06-23 20:21] LABS: GLOMERULAR FILTRATION RATE 88 ML/MIN (>89)
--- NOTE | 2017-06-23 20:23 | RADRPT ---
EXAM DATE/TIME: 06/23/2017 19:53 [facility] COMPARISON: CHEST SINGLE AP, February 08, 2017, 12:58. INDICATIONS : Short of breath today. MEDICAL HISTORY : Hepatitis C. Chronic obstructive pulmonary disease. Hypertension. Asthma. Substance abuse. TB - treat ed. SURGICAL HISTORY : Cholecystectomy. Hernia repair ENCOUNTER: Initial ACUITY: 1 day PAIN SCORE: 0/10 LOCATION: Bilateral chest FINDINGS: The heart is stable. Mild increased interstitial markings are noted consistent with mild pulmonary v ascular congestion versus viral pneumonitis. Clinical correlation is recommended. No focal alveolar c onsolidation is noted. CONCLUSION: Mild increased interstitial markings consistent with mild pulmonary vascular congestion versus pneumo nitis. Clinical correlation is recommended. Marvin Navarro MD on June 23, 2017 at 20:20 Board Certified Radiologist. This report was verified electronically.
[2017-06-23 20:24] LABS: CREATINE KINASE 242 U/L (39-308)
[2017-06-23 20:28] LABS: AUTOMATED NEUTROPHIL # 4.3 TH/MM3 (1.8-7.7); BASOPHIL # 0.1 TH/MM3 (0-0.2); BASOPHIL % 0.6 % (0.0-2.0); EOSINOPHIL # 0.1 TH/MM3 (0-0.4); EOSINOPHIL % 1.7 % (0.0-4.0); HEMATOCRIT 48.2 % (39.0-51.0); HEMO FLAGS DIFF FINAL; LYMPH % 38.5 % (9.0-44.0); LYMPHOCYTE # 3.2 TH/MM3 (1.0-4.8); MEAN CELL VOLUME 96.8 FL (80.0-100.0); MEAN CORPUSCULAR HEMOGLOBIN 32.1 PG (27.0-34.0); MEAN CORPUSCULAR HGB CONC 33.1 % (32.0-36.0); MONO % 8.2 % (0.0-8.0); PLATELET COUNT 189 TH/MM3 (150-450); RED BLOOD COUNT 4.97 MIL/MM3 (4.50-5.90); RED CELL DISTRIBUTION WIDTH 12.8 % (11.6-17.2); WHITE BLOOD COUNT 8.4 TH/MM3 (4.0-11.0)
[2017-06-23 20:36] VITALS: BP 135/74; PULSE 87; RESP 18; O2SAT 97
[2017-06-23 20:37] LABS: CKMB 3.3 NG/ML (0.5-3.6)
[2017-06-23] MEDS ORDERED: MEDR4PAK PO (20:46)
[2017-06-23] MEDS ORDERED: IPRA17I INH (20:46)
[2017-06-23 20:48] VITALS: RESP 18; O2SAT 97
[2017-06-23] MEDS ORDERED: RESP: ALBUTEROL 2.5 MG/IPRATROPIUM 0.5 MG NEB (SCH) NEB ONE (21:00)
--- NOTE | 2017-06-24 20:51 | EKG ---
Date Performed: 06/23/2017 Time Performed: 20:19:43 PTAGE: 51 years EKG: Sinus rhythm NORMAL ECG PREVIOUS TRACING : 02/07/2017 08.50 Compared to prior tracing no significant change DOCTOR: Dimas Frazier Interpretating Date/Time 06/24/2017 20:46:33
== END 2017-06-23 20:59 | disposition home or self-care (01) ==
LOC: PHED 19:32
DX: J44.1 Chronic obstructive pulmonary disease with (acute) exacerbation (principal); J18.9 Pneumonia, unspecified organism; B19.20 Unspecified viral hepatitis C without hepatic coma; I10 Essential (primary) hypertension; F17.210 Nicotine dependence, cigarettes, uncomplicated
CPT/HCPCS: 71010; 80048; 82550; 82552; 83735; 83880; 84484; 85025; 93005; 94640; 94664; 96374; 96375; 99285; J2060; J2930

== ENCOUNTER 2017-09-05 13:00 | Emergency (ER) | payer MEDICAID ==
[~2017-09-05 13:00] MED LIST changes: +IBUP1TAB7 PO; -IBUP800T23 PO; +MEDR4PAK PO; -PERC5TAB12 PO; -SENN1TAB PO
[2017-09-05 13:07] VITALS: BP 121/102; PULSE 104; TEMP 97.9
== END 2017-09-05 13:38 | disposition left against medical advice (07) ==
LOC: PHED 13:00
DX: T69.8XXA Other specified effects of reduced temperature, initial encounter (principal); X58.XXXA Exposure to other specified factors, initial encounter
CPT/HCPCS: 99281

== ENCOUNTER 2017-12-29 11:21 | Emergency (ER) | payer MEDICAID ==
[~2017-12-29] VITALS: Ht 177.8 cm; Wt 106.4 kg
[2017-12-29] MEDS ORDERED: SODIUM CHLORIDE 0.9% FLUSH 10 ML FLUSH IVF PRN (11:30)
[2017-12-29] MEDS ORDERED: methylPREDNISolone SOD SUCC 125 MG/2 ML VIAL IV PUSH ONE (11:30)
[2017-12-29] MEDS: RESP: ALBUTEROL 2.5 MG/IPRATROPIUM 0.5 MG NEB (SCH) INH ×2 (11:33→11:34)
[2017-12-29 11:35] VITALS: O2SAT 94
--- NOTE | 2017-12-29 11:36 | PD ---
HPI Chief Complaint: short of breath Time Seen by Provider: 11:28 Travel History International Travel<30 days: No Contact w/Intl Traveler<30days: No History of Present Illness HPI 52 y/o male presents with shortness of breath and wheezing over the past couple of days ago worse last night. He states he ran out of his inhalers over the past couple of days and is having issues feeling them with his insurance. He states he feels worse when he moves around. He denies other modifying factors. He denies any other concurrent complaints. Duration is couple of days. Quality is wheezing. Severity is progressive. PFSH Past Medical History Asthma: Yes Anxiety: Yes Cardiovascular Problems: Yes COPD: Yes Diabetes: No Diminished Hearing: No Gastrointestinal Disorders: No Hepatitis: Yes (HEP C) Hypertension: Yes Musculoskeletal: Yes (CHRONIC BACK PAIN SINCE 1994 R/T FALL) Neurologic: No Respiratory: Yes (TB A CHILD) Immunizations Current: Yes (hep a vacc 2010 &b vacc.2011) Sleep Apnea: No Past Surgical History Abdominal Surgery: Yes (HERNIA REPAIR X 3) Body Medical Devices: COCAINE USE LAST 20 YRS AGO Cholecystectomy: Yes Neurologic Surgery: No Other Surgery: Yes (LIVER BIOPSY X2) Social History Alcohol Use: No Tobacco Use: Yes (4 CIGS/DAY) Substance Use: Yes (MARIJUANA) Allergies-Medications (Allergen,Severity, Reaction): Coded Allergies: No Known Allergies (Verified , 02/16/17) Reported Meds & Prescriptions Reported Meds & Active Scripts Active Prednisone 50 Mg Tab 50 Mg PO DAILY 5 Days Azithromycin 250 Mg Tab 250 Mg PO DIRECTED Take 2 tabs (500 mg) on day 1 then 1 tab daily x 4 days. Ventolin Hfa 18 GM Inh (Albuterol Sulfate) 90 Mcg/Act Aer 2 Puff INH Q4H PRN Atrovent HFA 12.9 GM Inh (Ipratropium [place]) 17 Mcg/Actuation Aer 2 Puff INH Q6HR PRN Reported Seroquel (Quetiapine Fumarate) 400 Mg Tab 400 Mg PO HS Ibuprofen 800 Mg Tab 800 Mg PO BID PRN Atrovent HFA 12.9 GM Inh (Ipratropium [place]) 17 Mcg/Act Aer 2 Puff INH Q6HR PRN Advair Diskus Inh (Fluticasone-Salmeterol Inh) 500-50 Mcg/Blist Aer 1 Puff INH BID Rinse mouth after use. Review of Systems Except as stated in HPI: all other systems reviewed are Neg Physical Exam Narrative GENERAL: 52-year-old male who appears short of breath SKIN: Focused skin assessment warm/dry. HEAD: Atraumatic. Normocephalic. EYES: Pupils equal and round. No scleral icterus. No injection or drainage. ENT: No nasal bleeding or discharge. Mucous membranes pink and moist. NECK: Trachea midline. CARDIOVASCULAR: Regular rate and rhythm. RESPIRATORY: Decreased aeration bilaterally, tachypnea noted GASTROINTESTINAL: Abdomen soft, nondistended. MUSCULOSKELETAL: No obvious deformities. No clubbing. No cyanosis. No edema. NEUROLOGICAL: Awake and alert. Moves all extremities. Normal speech. Data Data Last Documented VS Vital Signs Date Time Temp Pulse Resp B/P (MAP) Pulse Ox O2 Delivery O2 Flow Rate FiO2 12/29/17 11:46 95 Room Air 12/29/17 11:40 24 12/29/17 11:38 98.3 90 148/88 (108) 12/29/17 11:35 21 Orders Orders Complete Blood Count With Diff (12/29/17 11:28) Basic Metabolic Panel (Bmp) (12/29/17 11:28) Magnesium (Mg) (12/29/17 11:28) Influenzae A/B Antigen (12/29/17 11:28) Iv Access Insert/Monitor (12/29/17 11:28) Ecg Monitoring (12/29/17 11:28) Oximetry (12/29/17 11:28) Chest, Single Ap (12/29/17 11:28) Sodium Chloride 0.9% Flush (Ns Flush) (12/29/17 11:30) Methylprednisolone So Succ Inj (Solumedr (12/29/17 11:30) Albuterol-Ipratropium Neb (Duoneb Neb) (12/29/17 11:30) Ed Discharge Order (12/29/17 12:57) Labs Laboratory Tests Test 12/29/17 11:35 White Blood Count 8.2 TH/MM3 Red Blood Count 4.97 MIL/MM3 Hemoglobin 16.4 GM/DL Hematocrit 50.2 % Mean Corpuscular Volume 100.9 FL Mean Corpuscular Hemoglobin 32.9 PG Mean Corpuscular Hemoglobin Concent 32.7 % Red Cell Distribution Width 11.9 % Platelet Count 180 TH/MM3 Mean Platelet Volume 7.4 FL Neutrophils (%) (Auto) 53.8 % Lymphocytes (%) (Auto) 35.3 % Monocytes (%) (Auto) 7.8 % Eosinophils (%) (Auto) 1.4 % Basophils (%) (Auto) 1.7 % Neutrophils # (Auto) 4.5 TH/MM3 Lymphocytes # (Auto) 2.9 TH/MM3 Monocytes # (Auto) 0.6 TH/MM3 Eosinophils # (Auto) 0.1 TH/MM3 Basophils # (Auto) 0.1 TH/MM3 CBC Comment DIFF FINAL Differential Comment Blood Urea Nitrogen 15 MG/DL Creatinine 1.10 MG/DL Random Glucose 119 MG/DL Calcium Level 8.6 MG/DL Magnesium Level 2.2 MG/DL Sodium Level 141 MEQ/L Potassium Level 4.3 MEQ/L Chloride Level 105 MEQ/L Carbon Dioxide Level 29.2 MEQ/L Anion Gap 7 MEQ/L Estimat Glomerular Filtration Rate 70 ML/MIN MDM Medical Decision Making Medical Screen Exam Complete: Yes Emergency Medical Condition: Yes Medical Record Reviewed: Yes (past history confirmed) Interpretation(s) CBC & BMP Diagram 12/29/17 11:35 Calcium Level 8.6, Magnesium Level 2.2 Chest x-ray with possible early infiltrate. Patient without fever, white count or significant congestion we'll place on antibiotic for possible early pneumonia versus COPD exacerbation with azithromycin Differential Diagnosis Pneumonia, COPD, pneumothorax, renal failure Narrative Course Will check blood work, chest x-ray, influenza and dose with DuoNeb's and Solu- Medrol and reevaluate. Patient is stable on room air. Offered observation but patient adamantly states he cannot stay. We'll provide with prescriptions and given strict return instructions.Patient denies any new complaints and states that they are feeling better. Patient happy with care, all questions answered. Patient knows that follow up is incumbent on them and to return to the emergency room immediately if new or worsening symptoms develop. Patient given strict return precautions, vitals reviewed and are normal, agrees to further workup as an outpatient. Diagnosis Primary Impression: COPD exacerbation Patient Instructions: General Instructions Additional Instructions: return as needed, follow with primary tommorrow, albuterol as needed Med/Other Pt SpecificInfo: Prescription(s) given Scripts Prednisone (Prednisone) 50 Mg Tab 50 MG PO DAILY for 5 Days, #5 TAB 0 Refills Prov: Ava Beauchamp MD 12/29/17 Azithromycin (Azithromycin) 250 Mg Tab 250 MG PO DIRECTED for Infection, #6 TAB 0 Refills Take 2 tabs (500 mg) on day 1 then 1 tab daily x 4 days. Prov: Ava Beauchamp MD 12/29/17 Albuterol 18 GM Inh (Ventolin Hfa 18 GM Inh) 90 Mcg/Act Aer 2 PUFF INH Q4H Y for SHORTNESS OF BREATH, #1 INHALER 0 Refills Prov: Ava Beauchamp MD 12/29/17 Disposition: 01 DISCHARGE HOME Condition: Stable Ava Beauchamp MD Dec 29, 2017 11:36
[2017-12-29 11:38] VITALS: BP 148/88; PULSE 90; RESP 26; TEMP 98.3; O2SAT 95
[2017-12-29 11:41] LABS: AUTOMATED NEUTROPHIL # 4.5 TH/MM3 (1.8-7.7); BASOPHIL # 0.1 TH/MM3 (0-0.2); BASOPHIL % 1.7 % (0.0-2.0); EOSINOPHIL # 0.1 TH/MM3 (0-0.4); EOSINOPHIL % 1.4 % (0.0-4.0); HEMATOCRIT 50.2 % (39.0-51.0); HEMOGLOBIN 16.4 GM/DL (13.0-17.0); LYMPH % 35.3 % (9.0-44.0); LYMPHOCYTE # 2.9 TH/MM3 (1.0-4.8); MEAN CELL VOLUME 100.9 FL (80.0-100.0); MEAN CORPUSCULAR HEMOGLOBIN 32.9 PG (27.0-34.0); MEAN CORPUSCULAR HGB CONC 32.7 % (32.0-36.0); MEAN PLATELET VOLUME 7.4 FL (7.0-11.0); MONO % 7.8 % (0.0-8.0); MONOCYTE # 0.6 TH/MM3 (0-0.9); NEUT % 53.8 % (16.0-70.0); PLATELET COUNT 180 TH/MM3 (150-450); RED BLOOD COUNT 4.97 MIL/MM3 (4.50-5.90); RED CELL DISTRIBUTION WIDTH 11.9 % (11.6-17.2); WHITE BLOOD COUNT 8.2 TH/MM3 (4.0-11.0)
[2017-12-29 11:46] VITALS: O2SAT 95
[2017-12-29 11:53] LABS: BICARBONATE 29.2 MEQ/L (21.0-32.0); CALCIUM 8.6 MG/DL (8.5-10.1); MAGNESIUM 2.2 MG/DL (1.5-2.5)
--- NOTE | 2017-12-29 11:53 | RADRPT ---
EXAM DATE/TIME: 12/29/2017 11:37 [facility] COMPARISON: CHEST SINGLE AP, June 23, 2017, 19:53. INDICATIONS : Shortness of breath. MEDICAL HISTORY : Hypertension. Chronic obstructive pulmonary disease. Cirrhosis. Asthma. SURGICAL HISTORY : None. ENCOUNTER: Initial ACUITY: 2 days PAIN SCORE: 0/10 LOCATION: Bilateral chest FINDINGS: Lungs are hyperinflated. Emphysematous changes are identified in the upper lobes. Mild interstitial p rominence is seen in both lung bases. Mild increased opacity seen in the left base. Heart and mediastinal structures are stable. CONCLUSION: 1. COPD 2. Bibasilar chronic interstitial lung disease. 3. Mild left basilar opacity which may represent early airspace disease. Toro Evans MD on December 29, 2017 at 11:49 Board Certified Radiologist. This report was verified electronically.
[2017-12-29 11:57] LABS: CREATININE 1.1 MG/DL (0.60-1.30)
[2017-12-29] MEDS ORDERED: AZIT250T3 PO (12:56)
[2017-12-29] MEDS ORDERED: VENTAER INH (12:56)
[2017-12-29] MEDS ORDERED: PRED50 PO (12:56)
== END 2017-12-29 13:14 | disposition home or self-care (01) ==
LOC: PHED 11:21
DX: J44.1 Chronic obstructive pulmonary disease with (acute) exacerbation (principal); B19.20 Unspecified viral hepatitis C without hepatic coma; F41.9 Anxiety disorder, unspecified; I10 Essential (primary) hypertension; J84.9 Interstitial pulmonary disease, unspecified; Z72.0 Tobacco use; Z79.899 Other long term (current) drug therapy
CPT/HCPCS: 71045; 80048; 83735; 85025; 87804; 94640; 94664; 96374; 99284; J2930

== ENCOUNTER 2018-02-14 18:38 | Observation (INO) | payer MEDICAID ==
[~2018-02-14] VITALS: Ht 177.8 cm; Wt 111.0 kg
[~2018-02-14 18:38] MED LIST changes: +AZIT250T3 PO; -MEDR4PAK PO; +PRED50 PO
[2018-02-14] MEDS ORDERED: methylPREDNISolone SOD SUCC 125 MG/2 ML VIAL IV PUSH ONE (18:45)
[2018-02-14] MEDS ORDERED: SODIUM CHLORIDE 0.9% FLUSH 10 ML FLUSH IVF PRN (18:45)
[2018-02-14] MEDS: RESP: ALBUTEROL 2.5 MG/IPRATROPIUM 0.5 MG NEB (SCH) INH (18:46)
[2018-02-14] MEDS ORDERED: predniSONE 50 MG TAB PO ONE (19:00)
--- NOTE | 2018-02-14 19:02 | PD ---
HPI Chief Complaint: Shortness of breath Time Seen by Provider: 18:41 Travel History International Travel<30 days: No Contact w/Intl Traveler<30days: No Traveled to known affect area: No History of Present Illness HPI 52-year-old male with history of COPD here for evaluation of shortness of breath and cough. Symptoms started yesterday and has been progressively worsening. Shortness of breath is at rest, worse with exertion. He does not have any home albuterol treatments. Patient appears to be significantly short of breath, however he also appears anxious. He is demanding only Solu-Medrol and albuterol. He is declining IV access. PFSH Past Medical History Asthma: Yes Anxiety: Yes Cardiovascular Problems: Yes Cirrhosis: Yes COPD: Yes Diabetes: No Diminished Hearing: No Gastrointestinal Disorders: No Hepatitis: Yes (HEP C) Hypertension: Yes Musculoskeletal: Yes (CHRONIC BACK PAIN SINCE 1994 R/T FALL) Neurologic: No Respiratory: Yes (COPD) Immunizations Current: Yes (hep a vacc 2010 &b vacc.2010) Sleep Apnea: No Past Surgical History Abdominal Surgery: Yes (HERNIA REPAIR X 3) Body Medical Devices: COCAINE USE LAST 20 YRS AGO Cholecystectomy: Yes Neurologic Surgery: No Other Surgery: Yes (LIVER BIOPSY X2) Social History Alcohol Use: No Tobacco Use: Yes (1 ppd) Substance Use: No Allergies-Medications (Allergen,Severity, Reaction): Coded Allergies: No Known Allergies (Verified Adverse Reaction, Unknown, 02/14/18) Reported Meds & Prescriptions Reported Meds & Active Scripts Active Prednisone 50 Mg Tab 50 Mg PO DAILY 5 Days Ventolin Hfa 18 GM Inh (Albuterol Sulfate) 90 Mcg/Act Aer 2 Puff INH Q4H PRN Reported Seroquel (Quetiapine Fumarate) 400 Mg Tab 400 Mg PO HS Ibuprofen 800 Mg Tab 800 Mg PO BID PRN Atrovent HFA 12.9 GM Inh (Ipratropium [place]) 17 Mcg/Act Aer 2 Puff INH Q6HR PRN Advair Diskus Inh (Fluticasone-Salmeterol Inh) 500-50 Mcg/Blist Aer 1 Puff INH BID Rinse mouth after use. Review of Systems Except as stated in HPI: all other systems reviewed are Neg Physical Exam Narrative GENERAL: Well-developed, well-nourished, moderate to severe respiratory distress , speaking full sentences. SKIN: Focused skin assessment warm/dry. HEAD: Atraumatic. Normocephalic. EYES: Pupils equal and round. No scleral icterus. No injection or drainage. ENT: Mucous membranes pink and moist. NECK: Trachea midline. No JVD. CARDIOVASCULAR: Tachycardic, rate 105, regular. RESPIRATORY: Moderate to severe respiratory distress, accessory muscle use, speaking full sentences, poor air movement bilaterally with inspiratory and expiratory wheezes bilaterally. GASTROINTESTINAL: Abdomen soft, non-tender, nondistended. MUSCULOSKELETAL: No obvious deformities. No clubbing. No cyanosis. No edema. NEUROLOGICAL: Awake and alert. No obvious cranial nerve deficits. Motor grossly within normal limits. Normal speech. PSYCHIATRIC: Appears anxious. Data Data Last Documented VS Vital Signs Date Time Temp Pulse Resp B/P (MAP) Pulse Ox O2 Delivery O2 Flow Rate FiO2 02/14/18 21:00 108 18 142/84 (103) 98 Room Air 02/14/18 20:08 100.6 4.00 Orders Orders Complete Blood Count With Diff (02/14/18 18:41) Comprehensive Metabolic Panel (02/14/18 18:41) B-Type Natriuretic Peptide (02/14/18 18:41) Act Partial Throm Time (Ptt) (02/14/18 18:41) Prothrombin Time / Inr (Pt) (02/14/18 18:41) Influenzae A/B Antigen (02/14/18 18:41) Iv Access Insert/Monitor (02/14/18 18:41) Ecg Monitoring (02/14/18 18:41) Oximetry (02/14/18 18:41) Oxygen Administration (02/14/18 18:41) Chest, Single Ap (02/14/18 18:41) Sodium Chloride 0.9% Flush (Ns Flush) (02/14/18 18:45) Methylprednisolone So Succ Inj (Solumedr (02/14/18 18:45) Albuterol-Ipratropium Neb (Duoneb Neb) (02/14/18 18:45) Prednisone (Deltasone) (02/14/18 19:00) Quetiapine (Seroquel) (02/14/18 19:45) Ibuprofen (Motrin) (02/14/18 19:45) Blood Culture (02/14/18 19:46) Urinalysis - C+S If Indicated (02/14/18 19:55) Drug Screen, Random Urine (02/14/18 19:57) Sputum Culture And Gram Stain (02/14/18 20:04) Blood Culture (02/14/18 20:04) Lactic Acid Sepsis Protocol (02/14/18 20:04) Sodium Chlor 0.9% 1000 Ml Inj (Ns 1000 M (02/14/18 20:45) Creatine Kinase (Cpk) (02/14/18 19:47) Levofloxacin 500 Mg Premix Inj (Levaquin (02/14/18 21:30) Acetaminophen (Tylenol) (02/14/18 21:30) Labs Laboratory Tests Test 02/14/18 19:47 02/14/18 20:10 White Blood Count 15.6 TH/MM3 Red Blood Count 4.83 MIL/MM3 Hemoglobin 15.8 GM/DL Hematocrit 47.7 % Mean Corpuscular Volume 98.9 FL Mean Corpuscular Hemoglobin 32.7 PG Mean Corpuscular Hemoglobin Concent 33.1 % Red Cell Distribution Width 11.9 % Platelet Count 165 TH/MM3 Mean Platelet Volume 7.7 FL Neutrophils (%) (Auto) 77.7 % Lymphocytes (%) (Auto) 12.5 % Monocytes (%) (Auto) 5.6 % Eosinophils (%) (Auto) 0.7 % Basophils (%) (Auto) 3.5 % Neutrophils # (Auto) 12.1 TH/MM3 Lymphocytes # (Auto) 2.0 TH/MM3 Monocytes # (Auto) 0.9 TH/MM3 Eosinophils # (Auto) 0.1 TH/MM3 Basophils # (Auto) 0.5 TH/MM3 CBC Comment DIFF FINAL Differential Comment Prothrombin Time 10.0 SEC Prothromb Time International Ratio 1.0 RATIO Activated Partial Thromboplast Time 24.0 SEC Blood Urea Nitrogen 11 MG/DL Creatinine 0.82 MG/DL Random Glucose 98 MG/DL Total Protein 7.1 GM/DL Albumin 3.7 GM/DL Calcium Level 8.3 MG/DL Alkaline Phosphatase 78 U/L Aspartate Amino Transf (AST/SGOT) 28 U/L Alanine Aminotransferase (ALT/SGPT) 42 U/L Total Bilirubin 1.5 MG/DL Sodium Level 135 MEQ/L Potassium Level 3.6 MEQ/L Chloride Level 101 MEQ/L Carbon Dioxide Level 27.8 MEQ/L Anion Gap 6 MEQ/L Estimat Glomerular Filtration Rate 98 ML/MIN Lactic Acid Level 1.0 mmol/L Total Creatine Kinase 229 U/L B-Type Natriuretic Peptide 21 PG/ML Urine Color YELLOW Urine Turbidity CLEAR Urine pH 5.0 Urine Specific [place] 1.010 Urine Protein NEG mg/dL Urine Glucose (UA) NEG mg/dL Urine Ketones NEG mg/dL Urine Occult Blood SMALL Urine Nitrite NEG Urine Bilirubin NEG Urine Urobilinogen 1.0 MG/DL Urine Leukocyte Esterase TRACE Urine RBC 10-14 /hpf Urine WBC 3-5 /hpf Urine Squamous Epithelial Cells 0-5 /hpf Urine Bacteria NONE /hpf Microscopic Urinalysis Comment CULT NOT INDICATED Urine Opiates Screen NEG Urine Barbiturates Screen NEG Urine Amphetamines Screen NEG Urine Benzodiazepines Screen NEG Urine Cocaine Screen POS Urine Cannabinoids Screen POS MDM Medical Decision Making Medical Screen Exam Complete: Yes Emergency Medical Condition: Yes Differential Diagnosis COPD exacerbation, pneumonia, pneumothorax, ACS, PE Narrative Course Chest x-ray shows bibasilar scarring, no change from prior. Patient was given 3 DuoNeb treatments, and because he was refusing IV access, was given oral prednisone. About 30 minutes after arrival the patient began demanding his Seroquel stating that he has not had it for the last 2 days. He is also requesting ibuprofen. After the patient received his Seroquel he is more cooperative with allowing us to obtain blood work and vital signs. Initial vital signs show heart rate 113, blood pressure 170/100, pulse ox 95% on 100% non-breather, oral temp of 100.1F. CBC: WBC 15.6, hemoglobin 15.8, hematocrit 47.7, platelets 165, neutrophils 77.7 %. CMP is unremarkable. Lactic acid is 1. BNP is 21. Influenza is negative. UA: Small occult blood, trace leukocyte esterase, 10-14 RBCs. Urine drug screen is positive for cocaine and marijuana. The patient denies IV drug use. Chest x-ray: Bibasilar scarring. No change from prior study. Patient was made aware of all findings. He did have significant improvement in his respiratory status after DuoNeb's and prednisone. He still has slight wheezes bilaterally with mild accessory muscle use. This patient clearly has psychiatric history. He is not suicidal or homicidal. I am afraid that because of his bizarre presentation with initial appearance of severe respiratory distress, that he may decompensate if discharged home. He will therefore be admitted for overnight observation and started on IV Levaquin for COPD exacerbation, bronchitis. Case discussed with hospitalist Dr. Foster who will admit the patient to the hospitalist service for overnight observation. Diagnosis Primary Impression: COPD exacerbation Additional Impressions: Bronchitis Polysubstance abuse Admitting Information Admitting Physician Requests: Observation Liu Zelaya MD February 14, 2018 19:02
[2018-02-14 19:06] VITALS: BP 170/100; PULSE 113; RESP 22; TEMP 100.1; O2SAT 95; O2SAT 97
--- NOTE | 2018-02-14 19:31 | RADRPT ---
EXAM DATE/TIME: 02/14/2018 19:13 [facility] COMPARISON: CHEST SINGLE AP, December 29, 2017, 11:37. INDICATIONS : Shortness of breath. MEDICAL HISTORY : Hypertension. Chronic obstructive pulmonary disease. Cirrhosis. Asthma. SURGICAL HISTORY : None. ENCOUNTER: Initial ACUITY: 1 day PAIN SCORE: 0/10 LOCATION: Bilateral chest FINDINGS: A single view of the chest demonstrates bibasilar scarring without evidence of mass, infiltrate or ef fusion. The cardiomediastinal contours are unremarkable. Osseous structures are intact. CONCLUSION: 1. Bibasilar scarring. 2. No change from previous study. Viral Bennett MD on February 14, 2018 at 19:27 Board Certified Radiologist. This report was verified electronically.
[2018-02-14] MEDS ORDERED: QUEtiapine FUMARATE 300 MG TAB PO ONE (19:45)
[2018-02-14] MEDS ORDERED: IBUPROFEN 600 MG TAB PO ONE (19:45)
[2018-02-14 20:08] VITALS: BP 139/70; PULSE 108; RESP 20; TEMP 100.6; O2SAT 100
[2018-02-14 20:19] LABS: AUTOMATED NEUTROPHIL # 12.1 TH/MM3 (1.8-7.7); BASOPHIL # 0.5 TH/MM3 (0-0.2); BASOPHIL % 3.5 % (0.0-2.0); EOSINOPHIL # 0.1 TH/MM3 (0-0.4); EOSINOPHIL % 0.7 % (0.0-4.0); HEMATOCRIT 47.7 % (39.0-51.0); HEMOGLOBIN 15.8 GM/DL (13.0-17.0); LYMPH % 12.5 % (9.0-44.0); MEAN CELL VOLUME 98.9 FL (80.0-100.0); MEAN CORPUSCULAR HEMOGLOBIN 32.7 PG (27.0-34.0); MEAN CORPUSCULAR HGB CONC 33.1 % (32.0-36.0); MEAN PLATELET VOLUME 7.7 FL (7.0-11.0); MONO % 5.6 % (0.0-8.0); MONOCYTE # 0.9 TH/MM3 (0-0.9); NEUT % 77.7 % (16.0-70.0); PLATELET COUNT 165 TH/MM3 (150-450); RED BLOOD COUNT 4.83 MIL/MM3 (4.50-5.90); RED CELL DISTRIBUTION WIDTH 11.9 % (11.6-17.2); WHITE BLOOD COUNT 15.6 TH/MM3 (4.0-11.0)
[2018-02-14 20:29] LABS: CHLORIDE 101 MEQ/L (98-107); SODIUM (NA) 135 MEQ/L (136-145)
[2018-02-14 20:32] LABS: CALCIUM 8.3 MG/DL (8.5-10.1)
[2018-02-14 20:33] LABS: ALBUMIN 3.7 GM/DL (3.4-5.0); BICARBONATE 27.8 MEQ/L (21.0-32.0); BLOOD UREA NITROGEN 11 MG/DL (7-18); GLUCOSE,RANDOM 98 MG/DL (74-106)
[2018-02-14 20:34] LABS: BILIRUBIN, URINE NEG (NEG); BLOOD, URINE SMALL (NEG); GLUCOSE,URINE NEG (NEG); KETONE, URINE NEG (NEG); NITRITE,URINE NEG (NEG); URINE COLOR YELLOW (YELLW/STRAW); URINE LEUKOCYTE ESTERASE TRACE (NEG)
[2018-02-14 20:36] LABS: ALT (GPT) 42 U/L (12-78); AST (GOT) 28 U/L (15-37); CREATININE 0.82 MG/DL (0.60-1.30); GLOMERULAR FILTRATION RATE 98 ML/MIN (>89)
[2018-02-14 20:38] LABS: TOTAL BILIRUBIN ADULT 1.5 MG/DL (0.2-1.0); TOTAL PROTEIN 7.1 GM/DL (6.4-8.2)
[2018-02-14 20:39] LABS: ALKALINE PHOSPHATASE 78 U/L (45-117)
[2018-02-14] MEDS ORDERED: SODIUM CHLOR 0.9% 1000 ML INJ 1,000 ML IV ONE (20:45)
[2018-02-14 20:54] LABS: SQUAMOUS EPITHELIAL CELL URINE 0-5 /hpf (0-5)
[2018-02-14 21:00] VITALS: BP 142/84; PULSE 108; RESP 18; O2SAT 98
[2018-02-14] MEDS ORDERED: ACETAMINOPHEN 325 MG TAB PO ONE (21:30)
[2018-02-14] MEDS ORDERED: LEVOFLOXACIN 500 MG PREMIX INJ 100 ML IV ONE (21:30)
[2018-02-14] MEDS ORDERED: NALOXONE HCL 0.4 MG/ML AMP IV PUSH PRN (22:15)
[2018-02-14] MEDS ORDERED: SODIUM CHLORIDE 0.9% FLUSH 10 ML FLUSH IV FLUSH PRN (22:15)
[2018-02-14] MEDS ORDERED: ACETAMINOPHEN 325 MG TAB PO PRN (22:15)
[2018-02-14] MEDS ORDERED: RESP: ALBUTEROL 2.5 MG/IPRATROPIUM 0.5 MG NEB (PRN) NEB (22:15)
[2018-02-14] MEDS: SODIUM CHLOR 0.9% 1000 ML INJ 1,000 ML IV SCH (23:14)
[2018-02-14 23:18] VITALS: BP 110/68; PULSE 97; RESP 18; TEMP 98.8; O2SAT 96
[2018-02-15] MEDS ORDERED: PANTOPRAZOLE SOD 20 MG DELAYED RELEASE TAB PO ONE (00:15)
[2018-02-15] MEDS ORDERED: RESP: ALBUTEROL 2.5 MG/IPRATROPIUM 0.5 MG NEB (SCH) NEB (04:00)
[2018-02-15 04:52] VITALS: BP 118/76; PULSE 76; RESP 20; TEMP 96.2; O2SAT 94
[2018-02-15] MEDS: SODIUM CHLOR 0.9% 1000 ML INJ 1,000 ML IV SCH (08:01)
[2018-02-15] MEDS ORDERED: SODIUM CHLORIDE 0.9% FLUSH 10 ML FLUSH IV FLUSH SCH (09:00)
[2018-02-15] MEDS ORDERED: PANTOPRAZOLE SOD 20 MG DELAYED RELEASE TAB PO SCH (09:00)
[2018-02-15] MEDS ORDERED: predniSONE 50 MG TAB PO SCH (21:00)
[2018-02-15] MEDS ORDERED: LEVOFLOXACIN 750 MG TAB PO SCH (21:00)
== END 2018-02-15 08:59 | disposition left against medical advice (07) ==
LOC: PHED 18:38 → PHEDA 21:59 → PH3A 02-15 00:10
PROVIDERS: ADMIT Hospitalist; ATTEND Hospitalist
DX: J44.1 Chronic obstructive pulmonary disease with (acute) exacerbation (principal); R06.03 Acute respiratory distress; F19.10 Other psychoactive substance abuse, uncomplicated; K74.60 Unspecified cirrhosis of liver; I10 Essential (primary) hypertension; B19.20 Unspecified viral hepatitis C without hepatic coma; M54.9 Dorsalgia, unspecified; G89.29 Other chronic pain; F41.9 Anxiety disorder, unspecified; F17.200 Nicotine dependence, unspecified, uncomplicated; Z79.899 Other long term (current) drug therapy; Z53.20 Procedure and treatment not carried out because of patient's decision for unspecified reasons
CPT/HCPCS: 71045; 80053; 80307; 81001; 82550; 83605; 83880; 85025; 85610; 85730; 87040; 87070; 87077; 87184; 87185; 87205; 87804; 94640; 94664; 96361; 96365; 99285; G0378; J1956; J7030; J7512